=== PATIENT | female | born 1980 | race Caucasian/White ===

== ENCOUNTER → 2017-04-01 | Outpatient (CLI) | payer BC ==
[2016-07-16 16:17] VITALS: BP 139/63
--- NOTE | 2017-04-01 12:04 | RAD ---
HISTORY: Joint pain. Right foot pain Study: Three-view right foot Comparison: No priors Findings: No acute cortical disruption or dislocation can be identified. No significant soft tissue swelling o r injury can be seen. The visualized portions of the talus and calcaneus are unremarkable. IMPRESSION: 1. Negative exam. Reported By:
--- NOTE | 2017-04-01 12:21 | RAD ---
HISTORY: Joint pain Study: Three views right ankle Comparison: None Findings: Normal alignment. No acute fracture or dislocation. The soft tissues are unremarkable. IMPRESSION: 1. No acute osseous abnormality. Reported By:
== END ==
LOC: RAD 10:48
PROVIDERS: ATTEND Nurse Practitioner Family
DX: M25.571 Pain in right ankle and joints of right foot (principal)
CPT/HCPCS: 73610; 73630